=== PATIENT | female | born 1970 | race Caucasian/White ===

== ENCOUNTER 2020-05-02 06:06 | Day surgery (SDC) | payer OTHER ==
[~2020-05-02] VITALS: Ht 162.6 cm; Wt 104.4 kg
[~2020-05-02 06:06] MED LIST: PROG100 PO; ZYRTEC10 M2 PO
--- NOTE | 2020-05-02 07:21 | NUR ---
History, Chart, Medications and Allergies reviewed before start of procedure. Lungs clear T/O to Auscultation. Patient confirms NPO status and agrees with scheduled surgery. Pre-Op teaching done. Pt verbalizes understanding. Patient reports completing Chlorhexadine shower X2 prior to admission to hospital.
--- NOTE | 2020-05-02 12:41 | NUR ---
BROUGHT INTO PACU VSS DRESSINGS CDI
--- NOTE | 2020-05-02 13:16 | NUR ---
1310-PT VERY SLEEPY AFTER PHENERGAN GIVEN BUT NO FURTHER C/O NAUSEA. O2 APPLIED FOR SATS DOWN TO 88%, PT WILL DB/COUGH WHEN ROUSED.NO C/O PAIN. STATES "I FEEL LIKE SHIT" BUT WILL NOT ELABORATE ON HOW
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
[2020-05-03 05:00] LABS: BASOPHILS ABSOLUTE AUTO 0.02 K/mm3 (0.00-0.23); BASOPHILS PERCENT AUTO 0 % (0-2); EOSINOPHILS ABSOLUTE AUTO 0.13 K/mm3 (0.00-0.68); EOSINOPHILS PERCENT AUTO 2 % (0-6); Hematocrit 30.1 % (33.0-51.0); Hemoglobin 9.5 g/dL (11.5-16.0); IMMATURE GRAN ABSOLUTE AUTO 0.02 K/mm3 (0.00-0.10); IMMATURE GRAN PERCENT AUTO 0 % (0-1); LYMPHOCYTES ABSOLUTE AUTO 0.67 K/mm3 (0.84-5.20); LYMPHOCYTES PERCENT AUTO 9 % (21-46); MONOCYTES ABSOLUTE AUTO 0.38 K/mm3 (0.16-1.47); MONOCYTES PERCENT AUTO 5 % (4-13); Mean Corpuscular HGB 29.7 pg (26.0-34.0); Mean Corpuscular HGB Conc 31.6 g/dL (31.5-36.5); Mean Corpuscular Volume 94 fL (80-100); Mean Platelet Volume 9.4 fL (9.1-12.4); NEUTROPHILS ABSOLUTE AUTO 6.37 K/mm3 (1.96-9.15); NEUTROPHILS PERCENT AUTO 84 % (41-73); Platelet Count 280 K/mm3 (150-400); RDW Coefficient Variation 14.5 % (11.7-14.2); RDW Standard Deviation 49.3 fL (35.1-46.3); White Blood Cell Count 7.59 K/mm3 (4.00-11.30)
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
[2020-05-03] MEDS ORDERED: Milk Of Ma400 MG/5 M PO (12:49)
[2020-05-03] MEDS ORDERED: DOCU100 PO (12:49)
[2020-05-03] MEDS ORDERED: Percocet 5-3251 EACH PO (12:52)
[2020-05-03] MEDS ORDERED: SENN187 PO (12:54)
[2020-05-03] MEDS ORDERED: PROM25 PO (12:54)
[2020-05-03] MEDS ORDERED: SIME80CH PO (12:55)
[2020-05-03] MEDS ORDERED: IBUP800 PO (12:56)
--- NOTE | 2020-05-03 14:37 | NUR ---
DISCHARGE: PT EATING AND DRINKING, VOIDING, PASSING GAS. PT REPORTS PAIN TOLERABLE. DENIES NAUSEA. REPORTS READY TO GO HOME. PT REPORTS DAUGHTER PICKING HER UP AND THAT SHE WOULD LIKE TO WAIT AT ENTRANCE FOR HER. PT REPORTS UNDERSTANDING OF DISCHARGE INSTRUCTIONS. SCRIPT GIVEN TO PT, PT SENT WITH BELONGINGS AND PAPERWORK.
== END 2020-05-03 14:41 | disposition home or self-care (01) ==
LOC: ORSCMMR 06:06 → ORD 07:30 → ORSCMMR 07:30 → SURS 14:19 → ORSCMMR 05-03 14:41
PROVIDERS: Obstetrics & Gynecology
PROC: 0UT94ZZ Resection of Uterus, Percutaneous Endoscopic Approach (ICD-10-PCS; principal; 2020-05-02 07:30)
PROC: 0UT74ZZ Resection of Bilateral Fallopian Tubes, Percutaneous Endoscopic Approach (ICD-10-PCS; principal; 2020-05-02 07:30)
PROC: 8E0W4CZ Robotic Assisted Procedure of Trunk Region, Percutaneous Endoscopic Approach (ICD-10-PCS; principal; 2020-05-02 07:30)
DX: N92.1 Excessive and frequent menstruation with irregular cycle (principal); D50.0 Iron deficiency anemia secondary to blood loss (chronic); D25.9 Leiomyoma of uterus, unspecified; N94.6 Dysmenorrhea, unspecified; K42.9 Umbilical hernia without obstruction or gangrene; N80.0 Endometriosis of uterus; N80.3 Endometriosis of pelvic peritoneum; E66.01 Morbid (severe) obesity due to excess calories; Z68.39 Body mass index [BMI] 39.0-39.9, adult; Z79.899 Other long term (current) drug therapy
CPT/HCPCS: 58573; S2900; 36415; 85025; 88307; J0690; J0780; J1100; J1885; J2250; J2270; J2405; J2550; J2704; J3010; J7050; J7120

== ENCOUNTER 2023-10-08 13:47 | Day surgery (SDC) | payer OTHER ==
[~2023-10-08] VITALS: Ht 165.1 cm; Wt 110.3 kg
[~2023-10-08 13:47] MED LIST changes: +Atropine Sulfate 0.1 MG/ML 10ML SYR ONE; +DOCU100 PO; +Glycopyrrolate 0.2 MG/ML 1MLVIAL ONE; +IBUP800 PO; +Lidocaine 2% 5 ML SDV ONE; +Lidocaine HCl/Pf 1% 5 ML VIAL ONE; +Methylene Blue 1% 100 MG/10 ML VIAL ONE; +Milk Of Ma400 MG/5 M PO; +Ondansetron HCl 2 MG / ML 2ML Vial ONE; +PROM25 PO; +Percocet 5-3251 EACH PO; +SENN187 PO; +SIME80CH PO; +VITAMIN D2 PO; +Vitamin B Comple1 EA PO; +ePHEDrine Sulfate 50 MG/ML 1ML Injection ONE
[2023-10-08] MEDS ORDERED: Lactated Ringer's 1,000 ML IV ONE ×2 (14:19→14:43)
[2023-10-08] MEDS ORDERED: propofoL 50 ML IV ONE (14:19)
[2023-10-08] MEDS ORDERED: Lidocaine HCl/Pf 1% 5 ML VIAL ONE (14:20)
[2023-10-08 16:19] VITALS: BP 128/82
== END 2023-10-08 16:15 | disposition home or self-care (01) ==
LOC: ORSCSDS 13:47
PROVIDERS: Specialist
PROC: 0DJD8ZZ Inspection of Lower Intestinal Tract, Via Natural or Artificial Opening Endoscopic (ICD-10-PCS; principal; 2023-10-08 15:00)
DX: Z12.11 Encounter for screening for malignant neoplasm of colon (principal); K64.8 Other hemorrhoids; K57.30 Diverticulosis of large intestine without perforation or abscess without bleeding
CPT/HCPCS: J0461; J2001; J2405; J2704; J7120; Q9968